=== PATIENT | female | born 1960 ===

== ENCOUNTER 2017-05-09 11:31 | Emergency (ER) | payer OTHER ==
[2017-05-09 12:07] VITALS: RESP 16; TEMP 97.8; O2SAT 98
[2017-05-09] MEDS ORDERED: Oxycodone/Acetaminophen 5/325 mg Tab PO STA (12:26)
[2017-05-09] MEDS ORDERED: Oxycodone/Acetaminophen 5/325 mg Tab ONE (12:52)
--- NOTE | 2017-05-09 13:45 | C.PDOC ---
History Of Present Illness 56 year old female presents to the ER with a complaint of right rib pain for the past 6 days after she tripped and landed on her right side. Patient reports she has pain with movement and has been taking advil with no relief. Denies head trauma or LOC. 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) Family History: States: Unknown Family Hx - Social History Hx Alcohol Use: No Hx Substance Use: No - Immunization History Hx Tetanus Toxoid Vaccination: No Hx Influenza Vaccination: No Hx Pneumococcal Vaccination: No Review Of Systems Respiratory: Negative for: Shortness of Breath, Wheezing Musculoskeletal: Positive for: Other (Right rib pain) Physical Exam - Physical Exam Appears: Non-toxic, Other (uncomfortable) Skin: Warm, Dry Head: Atraumatic, Normacephalic Eye(s): bilateral: Normal Inspection, EOMI Nose: Normal Oral Mucosa: Moist Neck: Normal ROM, Supple Chest: Symmetrical, Tenderness (Right posterior rib) Cardiovascular: Rhythm Regular Respiratory: Normal Breath Sounds, No Rales, No Rhonchi, No Wheezing Gastrointestinal/Abdominal: Soft, No Tenderness Extremity: Normal ROM Neurological/Psych: Oriented x3, Normal Speech ED Course And Treatment O2 Sat by Pulse Oximetry: 98 (Room air) Pulse Ox Interpretation: Normal - Radiology CXR: Interpreted by Me (Dr Hi and I), Viewed By Me CXR Interpretation: Yes: Fracture (3 rib). No: Pnemothorax Progress Note: Percocet administered for pain with improvement of pain. Patient will be discharge with spirometry incentive and instructions to follow up with PMD in 1-2 days or return if symptoms worsen. Disposition - Disposition Referrals: [facility] at [facility] [Outside] Disposition: HOME/ ROUTINE Disposition Time: 13:42 Condition: STABLE Additional Instructions: Follow up with your primary medical doctor or clinic in 2-5 days for further evaluation. Take medications as prescribed. Return to the emergency department at any time if symptoms persist or worsen. Prescriptions: Naproxen [Naprosyn] 1 tab PO BID PRN #20 tab PRN Reason: Pain oxyCODONE/Acetaminophen [Percocet 5/325 mg Tab] 1 tab PO QID PRN #20 tab PRN Reason: Pain Instructions: Rib Fracture (DC) Forms: Work/School/Gym Excuse - Clinical Impression Clinical Impression: Rib fracture - PA / PRIVATE WATCHMAN / Resident Statement MD/DO has reviewed & agrees with the documentation as recorded. - Scribe Statement The provider has reviewed the documentation as recorded by the Scribmadison [place] All medical record entries made by the Jorgeibmadison were at my direction and personally dictated by me. I have reviewed the chart and agree that the record accurately reflects my personal performance of the history, physical exam, medical decision making, and the department course for this patient. I have also personally directed, reviewed, and agree with the discharge instructions and disposition.
[2017-05-09 14:07] VITALS: BP 137/85; PULSE 81
--- NOTE | 2017-05-09 14:39 | RAD ---
PROCEDURE: Radiographs of the Chest and Right Ribs. HISTORY: trauma COMPARISON: None available. TECHNIQUE: Frontal radiograph of the chest and multiple oblique radiographs of the right ribs were obtained. FINDINGS: RIGHT RIBS: There are posterior right 5th 6th 7th and 8th rib fractures. No marked displacement seen. Minimal cortical offset of the posterior 6th rib noted noted. Chronicity of these fractures is not known. . LUNGS: Clear. PLEURA: No pneumothorax appreciated. Or asymmetric pleural fluid. CARDIOVASCULAR: Mild cardiomegaly. No pulmonary vascular congestion. OTHER FINDINGS: Scoliosis. Thoraco lumbar spondylosis. Bilateral shoulder arthrosis. IMPRESSION: Right 5th 6th 7th and 8th rib posterior fractures. Precise chronicity unknown. No marked displacement seen. Minimal cortical offset of the posterior right 6th rib noted. No pneumothorax appreciated. . Lung inspiration is shallow bilaterally. The appearance of each costophrenic angle is similar. No asymmetric moderate or large pleural effusion noted.
== END 2017-05-09 14:06 | disposition home or self-care (01) ==
LOC: C.ER 11:31
DX: S22.41XA Multiple fractures of ribs, right side, initial encounter for closed fracture (principal); W01.0XXA Fall on same level from slipping, tripping and stumbling without subsequent striking against object, initial encounter; Y92.89 Other specified places as the place of occurrence of the external cause

== ENCOUNTER 2017-06-18 11:26 | Emergency (ER) | payer OTHER ==
[2017-06-18 11:48] VITALS: PULSE 79; RESP 20; TEMP 97.6; O2SAT 98
--- NOTE | 2017-06-18 12:44 | C.PDOC ---
History Of Present Illness 56-year-old female presents to the emergency department with complaints of elevated blood pressure for the past 4 days. She admits to occasional mild headaches, light headedness and nausea in that amount of time. Patient has a Hx of hypertension, was taking Metoprolol once daily but stopped last year because she lost her insurance. Patient states she has some left over pills that she has been taking for the past few days. Patient has scheduled medical clinic appointment tomorrow, but came to ER due to concern about her symptoms. She denies chest pain, SOB, palpitations, visual changes, extremity weakness, sensory changes, facial droop, slurred speech. 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 Constitutional: Negative for: Fever, Chills Cardiovascular: Positive for: Light Headedness. Negative for: Chest Pain, Palpitations Respiratory: Negative for: Shortness of Breath Gastrointestinal: Positive for: Nausea. Negative for: Vomiting, Abdominal Pain , Diarrhea Musculoskeletal: Negative for: Back Pain Neurological: Positive for: Headache. Negative for: Weakness, Numbness, Confusion, Seizures, Altered Mental Status, Dizziness Physical Exam - Physical Exam Appears: Well, Non-toxic, No Acute Distress Eye(s): bilateral: Normal Inspection, PERRL, EOMI Oral Mucosa: Moist Neck: Supple Cardiovascular: Rhythm Regular Respiratory: Normal Breath Sounds, No Rales, No Rhonchi, No Wheezing Gastrointestinal/Abdominal: Normal Exam, Bowel Sounds, Soft, No Tenderness Neurological/Psych: Oriented x3, Normal Speech, Normal Cognition, Normal Cranial Nerves, No Cerebellar Signs, Normal Motor, Normal Sensation Gait: Steady ED Course And Treatment O2 Sat by Pulse Oximetry: 98 (RA) Pulse Ox Interpretation: Normal Progress Note: Patient given PO Norvasc, and accucheck ordered and reviewed. Reevaluation Time: 13:00 Reassessment Condition: Improved (Patient reassessed, is resting comfortably and states she feels better. BP has improved, currently 155/90, and accucheck is 120. Patient is well appearing and comfortable being discharged home, has scheduled clinic appt tomorrow. Patient given Rx for Norvasc, and instructed to return to ED if symptoms worsen/return.) Disposition Counseled Patient/Family Regarding: Studies Performed, Diagnosis, Need For Followup, Rx Given - Disposition Referrals: [facility] [Outside] Disposition: HOME/ ROUTINE Disposition Time: 12:45 Condition: STABLE Additional Instructions: FOLLOW UP IN THE MEDICAL CLINIC TOMORROW SCHEDULED USE MEDICATION DAILY RETURN TO ER IF YOU HAVE ANY CONCERNING SYMPTOMS Prescriptions: amLODIPine [Norvasc] 5 mg PO DAILY #30 tab Instructions: High Blood Pressure (DC) Forms: [employer] (Sami) Print Language: MALAYSIAN - POA Present On Arrival: None - Clinical Impression Clinical Impression: Hypertension - Scribe Statement The provider has reviewed the documentation as recorded by the Scribe (Vinh Abreu) All medical record entries made by the Scribe were at my direction and personally dictated by me. I have reviewed the chart and agree that the record accurately reflects my personal performance of the history, physical exam, medical decision making, and the department course for this patient. I have also personally directed, reviewed, and agree with the discharge instructions and disposition.
[2017-06-18 13:01] VITALS: BP 157/100
== END 2017-06-18 13:02 | disposition home or self-care (01) ==
LOC: C.ER 11:26
DX: I10 Essential (primary) hypertension (principal)

== ENCOUNTER 2018-02-11 08:50 | Emergency (ER) | payer OTHER, SELFPAY ==
[2018-02-11 08:50] VITALS: BMI 28.0
--- NOTE | 2018-02-11 09:29 | C.PDOC ---
History Of Present Illness 57 year old female presents to ED for evaluation of left ankle pain and swelling s/p injury last night. Pt states she missed a step on the stairs, twisting her left ankle. Notes she is unable to bear weight. She also reports pain and swelling to left lower leg, below the knee. Notes she took 600mg of Advil at 8:00 this morning. Otherwise, denies head injury, extremity weakness, numbness, skin changes, fever, or any other symptoms at this time. Time Seen by Provider: 02/11/18 09:26 Chief Complaint (Nursing): Lower Extremity Problem/Injury History Per: Patient History/Exam Limitations: no limitations Onset/Duration Of Symptoms: Days (1) Current Symptoms Are (Timing): Still Present Recent travel outside of the [place]: No Additional History Per: Patient - Ankle/Foot Description Of Injury: Fell, Twisted Currently Unable To: Bear Weight Alleviating Factor(s): OTC Pain Medication Past Medical History Reviewed: Historical Data, Nursing Documentation, Vital Signs Vital Signs: Last Vital Signs Temp 98.5 F 02/11/18 08:52 Pulse 89 02/11/18 08:52 Resp 16 02/11/18 08:52 BP 136/90 02/11/18 08:52 Pulse Ox 97 02/11/18 08:52 - Medical History PMH: HTN - [facility] 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 Constitutional: Negative for: Fever, Chills Musculoskeletal: Positive for: Foot Pain (left) Neurological: Negative for: Weakness, Numbness Physical Exam - Physical Exam Appears: Non-toxic, No Acute Distress Skin: Normal Color, Warm, Dry Head: Atraumatic, Normacephalic Oral Mucosa: Moist Extremity: Normal ROM (FROM of left knee joint), Tenderness (left medial malleolus > lateral malleolus), No Calf Tenderness, Capillary Refill (less than 2 seconds), No Deformity, Swelling (left ankle swelling; no knee, or proxmial tib fib region swelling), No Other (no tenderness to proximal tib fib area) Extremity: Bilateral: Normal Color And Temperature Pulses: Left Dorsalis Pedis: Normal, Right Dorsalis Pedis: Normal Neurological/Psych: Oriented x3, Normal Speech, Normal Motor, Normal Sensation ED Course And Treatment O2 Sat by Pulse Oximetry: 97 (RA) Pulse Ox Interpretation: Normal - CT Scan/US Left ankle CT Other Rad Studies (CT/US): Read By Radiologist, Radiology Report Reviewed CT/US Interpretation: Accession No. : [id number]. Patient Name / ID : NAVID [id number] / [id number]. Exam Date : 02/11/2018 10:19:59 ( Approved ). Study Comment : Sex / Age : F / 57Y. Creator : Onur Tariq MD. Dictator : Onur Tariq MD. Senior Php Developer : Hearing Screen Coordinator : Onur Tariq MD. Approver2 : Report Date : 02/11/2018 11:07:42. My Comment : . Date of service: 02/11/2018. PROCEDURE: CT left ankle. HISTORY: ANKLE FRACTURE. COMPARISON: Not available. TECHNIQUE: 2.5 mm contiguous axial sections were acquired through the left ankle. Sagittal and coronal images were reformatted from the axial scan. No intravenous contrast material was administered. Total exam DLP: 399.64 mGy-cm. This CT exam was performed using 1 or more of the following dose reduction techniques: Automated exposure control, adjustment of the mA and/or kV according to patient size, and/or use of iterative reconstruction technique. FINDINGS: There is an oblique minimally displaced fracture of the distal fibula above the level of the plafond and. There is probable very small avulsion fracture at the distal tip of the lateral malleolus. There is a minimally displaced comminuted fracture of the posterior malleolus. There is a minimally displaced comminuted fracture of the tip of the medial malleolus.. There is no other fracture identified. The talar dome is smooth. The ankle mortise is not widened. There is no tarsal fracture appreciated. The metatarsals appear intact. There is soft tissue swelling seen about both the medial and lateral aspect of the ankle. IMPRESSION: Trimalleolar fracture. No wart is widening. Talar dome intact. Progress - Re-Evaluation Re-evaluation Note: 02/11/18 10:02 D/W PODIATRY RESIDENT WILL EVAL IN ER. REQUESTS CT 02/11/18 12:03 SPLINT APPLIED BY PODIATRY RESIDENT. PT TO FU CLINIC 02/12 - Data Reviewed Data Reviewed: Diagnostic imaging Medical Decision Making Medical Decision Making: Plan: * Left Tib/fib, ankle, foot Xray * Left lower extremity CT scan * Percocet Disposition Counseled Patient/Family Regarding: Studies Performed, Diagnosis, Need For Followup, Rx Given - Disposition Referrals: [facility] [Outside] [facility] [Outside] Disposition: HOME/ ROUTINE Disposition Time: 12:03 Condition: IMPROVED Prescriptions: Ibuprofen [Motrin] 600 mg PO Q6 #30 tab oxyCODONE/Acetaminophen [Percocet 5/325 mg Tab] 1 ea PO Q6 PRN #10 tab PRN Reason: Pain, Moderate (4-7) Instructions: Ankle Fracture (DC), How to Use Crutches Forms: [employer] (Yemeni) - Clinical Impression Clinical Impression: Ankle fracture - Scribe Statement The provider has reviewed the documentation as recorded by the Scribe KP All medical record entries made by the Scribe were at my direction and personally dictated by me. I have reviewed the chart and agree that the record accurately reflects my personal performance of the history, physical exam, [facility] decision making, and the department course for this patient. I have also personally directed, reviewed, and agree with the discharge instructions and disposition.
[2018-02-11] MEDS ORDERED: Oxycodone/Acetaminophen 5/325 mg Tab PO STA (09:30)
[2018-02-11] MEDS ORDERED: Oxycodone/Acetaminophen 5/325 mg Tab ONE (09:45)
--- NOTE | 2018-02-11 11:11 | CT ---
Date of service: 02/11/2018 PROCEDURE: CT left ankle HISTORY: ANKLE FRACTURE COMPARISON: Not available TECHNIQUE: 2.5 mm contiguous axial sections were acquired through the left ankle. Sagittal and coronal images were reformatted from the axial scan. No intravenous contrast material was administered. Total exam DLP: 399.64 mGy-cm This CT exam was performed using 1 or more of the following dose reduction techniques: Automated exposure control, adjustment of the mA and/or kV according to patient size, and/or use of iterative reconstruction technique. FINDINGS: There is an oblique minimally displaced fracture of the distal fibula above the level of the plafond and. There is probable very small avulsion fracture at the distal tip of the lateral malleolus. There is a minimally displaced comminuted fracture of the posterior malleolus. There is a minimally displaced comminuted fracture of the tip of the medial malleolus.. There is no other fracture identified. The talar dome is smooth. The ankle mortise is not widened. There is no tarsal fracture appreciated. The metatarsals appear intact. There is soft tissue swelling seen about both the medial and lateral aspect of the ankle. IMPRESSION: Trimalleolar fracture. No wart is widening. Talar dome intact.
--- NOTE | 2018-02-11 12:15 | CP.PCM.CON ---
History of Present Illness - History of Present Illness History of Present Illness: Podiatry consult notes for attending Dr. Timmons: 57 y/o F patient with no PMH seen and evaluated in the ED for Pain and swelling in her left ankle. Patient states that yesterday she got tripped from the stairs. She states that her left ankle twisted inward. She states that she felt the pain immediatly and her left ankle got swollen. She states that the pain is 10/10 when she tries to step over her left foot and decreases to 4/10 when she is off weight bearing. She states that the swelling size of her left ankle is the same since yesterday. Patient denies any head trauma or loss of consciousness. She denies any tingling, numbness or burning sensation in her feet. Patient denies any recent F/N/V/C or SOB. She denies any other pedal complaint at this time. PMH: none. PSH: R leg surgery, Allergies: NKDA. Social Hx: smoker 4 cigarettes/day for more than 15 years, EtOH use socially. Denies illicit drug use. Review of Systems - Review of Systems Review of Systems: As per HPI - Constitutional Constitutional: As Per HPI Past Patient History - Past Social History Smoking Status: Light Smoker < 10 Cigarettes Daily - CARDIAC Hx Hypertension: Yes - MUSCULOSKELETAL/RHEUMATOLOGICAL Hx Musculoskeletal Disorders: Yes Other/Comment: Right rib fractures - PSYCHIATRIC Hx Substance Use: No - SURGICAL HISTORY Hx Surgeries: Yes Hx Section: Yes Hx Musculoskeletal Surgery: Yes (right foot sx) - ANESTHESIA Hx Anesthesia: Yes Hx Anesthesia Reactions: No Meds Allergies/Adverse Reactions: Allergies Allergy/AdvReac Type Severity Reaction Status Date / Time No Known Allergies Allergy Verified 02/11/18 08:58 Physical Exam - Constitutional Appears: Well, Non-toxic, No Acute Distress - Head Exam Head Exam: ATRAUMATIC, NORMOCEPHALIC - Extremities Exam Additional comments: LLE focused exam: Vasc: DP/PT 2/4, Cap refill < sec to all digits, Temp gradient warm to cool. Ecchymosis noted at the posteromedial aspect of her left ankle at Moderate perimalleolar edema noted to the left ankle. Neuro: Gross and protective sensations are intact. Derm: Ecchymosis noted at the posteromedial aspect of her left ankle at Moderat e perimalleolar edema noted to the left ankle. No clinical signs of active infection. MSK: Moderate pain on palpating the the L perimalleolar area. Pain with inversion of the left foot. Muscle power intact to all groups including the toes' flexors and extensors 5/5. - Neurological Exam Neurological exam: Alert, Oriented x3 - Psychiatric Exam Psychiatric exam: Normal Affect, Normal Mood Results - Vital Signs Recent Vital Signs: Last Vital Signs Temp 98.5 F 02/11/18 08:52 Pulse 89 02/11/18 08:52 Resp 16 02/11/18 08:52 BP 136/90 02/11/18 08:52 Pulse Ox 97 02/11/18 11:36 Assessment & Plan - Assessment and Plan (Free Text) Assessment: 57 y/o F patient seen and evaluated in the ED for Trimalleolar fracture left ankle Plan: - Patient seen and Evaluated in the ED. - Plan discussed in details with attending Dr. Timmons - Charts and vitals reviewed; Afebrile. - X-ray Left ankle;trimalleoloar fracture. - X-ray Left Foot;trimalleoloar fracture. - Tib-fibula X-ray: Ankle fracture. - CT left ankle: trimalleoloar fracture. - Posterior splint applied to the patient left LE. - Patient instructed to stay NWB to her left LE and to ambulate using crutches. - Dispensed pair of crutches. - Patient educated RICE protocol. - Patient instructed to keep the splint clean, Dry and Intact. - Rx; pain medication Prescribed by the ED doctor to be used in case of sever pain. - patient expressed verbal understanding. - Patient will follow up at Dr. Timmons at the podiatry clinic at [facility] tomorrow. - Thank you for consulting podiatry service. - Date & Time Date: 02/11/18 Time: 12:02
--- NOTE | 2018-02-11 12:50 | RAD ---
Date of service: 02/11/2018 PROCEDURE: Left Foot Radiographs. HISTORY: TRAUMA COMPARISON: None. FINDINGS: BONES: Normal. No fracture. JOINTS: Normal. SOFT TISSUES: Normal. OTHER FINDINGS: None. IMPRESSION: Normal left foot radiographs.
--- NOTE | 2018-02-11 12:52 | RAD ---
Date of service: 02/11/2018 PROCEDURE: Radiographs of the left tibia and fibula. HISTORY: TRAUMA COMPARISON: None available. TECHNIQUE: Frontal and lateral views obtained. FINDINGS: BONES: Oblique minimally displaced fracture distal fibula. Mildly displaced medial malleolar fracture. No other fracture definitely identified. JOINT SPACES: Unremarkable. OTHER FINDINGS: None. IMPRESSION: Distal fibular fracture. Medial malleolar fracture.
--- NOTE | 2018-02-11 12:53 | RAD ---
Date of service: 02/11/2018 PROCEDURE: Left Ankle Radiographs. HISTORY: TRAUMA COMPARISON: None available. FINDINGS: BONES: Minimally displaced posterior malleolar fracture. Mildly displaced medial malleolar fracture. Comminuted oblique distal fibular fracture above the level of the plafond. JOINTS: Normal. No osteoarthritis. Ankle mortise maintained. Talar dome intact SOFT TISSUES: Medial and lateral soft tissue swelling. OTHER FINDINGS: None. IMPRESSION: Trimalleolar fracture.
[2018-02-11 13:57] VITALS: BP 180/98; PULSE 87; RESP 20; TEMP 98.1; O2SAT 99
== END 2018-02-11 13:57 | disposition home or self-care (01) ==
LOC: C.ER 08:50
DX: S82.852A Displaced trimalleolar fracture of left lower leg, initial encounter for closed fracture (principal); W19.XXXA Unspecified fall, initial encounter; I10 Essential (primary) hypertension; F17.210 Nicotine dependence, cigarettes, uncomplicated
CPT/HCPCS: 29515; 73590; 73610; 73630; 73700; 97116; 97162; 99283; G8978; G8979; G8980

== ENCOUNTER 2018-02-26 06:14 | Day surgery (SDC) | payer SELFPAY ==
[2018-02-26] MEDS ORDERED: Bupivacaine HCl 0.5% PF (30 ml) Inj ONE (07:30)
[2018-02-26] MEDS ORDERED: ceFAZolin IV 1 gm in Dextrose 1 GM/50 ML BAG IVPB ONE ×2 (07:30→08:37)
[2018-02-26] MEDS ORDERED: Bacitracin Ointment 30 GM TUBE ONE (07:30)
[2018-02-26] MEDS ORDERED: Midazolam 2 MG/2 ML VIAL ONE ×2 (08:09→11:16)
[2018-02-26] MEDS ORDERED: Propofol 10 mg/ml Inj (20 ML) ONE (08:09)
[2018-02-26] MEDS ORDERED: Lidocaine Hydrochloride 5 ML INJ ONE (08:16)
[2018-02-26] MEDS ORDERED: Metoprolol 1 mg/ml Inj ONE (09:09)
[2018-02-26] MEDS ORDERED: Morphine 4 MG/ML VIAL ONE ×2 (10:48→11:13)
[2018-02-26] MEDS ORDERED: Oxycodone/Acetaminophen 5/325 mg Tab PO PRN ×2 (11:26)
--- NOTE | 2018-02-26 11:27 | PCM.SURG1 ---
Surgeon's Initial Post Op Note - Surgeon's Notes Surgeon: RAEANN LiM Blood Donor Unit Assistant: Dr. Manuel Yeager, RAEANNM PGY-3; RAEANN GlassM PGY-2; Type of Anesthesia: General Endo Anesthesia Administered By: Dr. Teresa MD Pre-Operative Diagnosis: closed displaced trimalleolar fracture of left ankle Operative Findings: see operative note. pre-operative and post-operative neurvascular status intact to left foot and ankle Post-Operative Diagnosis: same Operation Performed: ORIF distal fibula fracture with plates and screws, excision of medial malleolar avulsion fracture with repair of deltoid ligament using fiber tape, repair of syndesmotic ligament with tightrope all left ankle Specimen/Specimens Removed: none Estimated Blood Loss: EBL {In ML}: 15 Blood Products Given: N/A Drains Used: No Drains Post-Op Condition: Good Date of Surgery/Procedure: 02/26/18 Time of Surgery/Procedure: 08:30
[2018-02-26] MEDS: HYDROmorphone 0.5 mg/0.5 ml ISec IVP PRN ×2 (12:17→12:29)
--- NOTE | 2018-02-26 13:16 | PCM.ANESB2 ---
Popliteal Nerve Block - Popliteal Nerve Block Date of Procedure: 02/26/18 Anesthesiologist: Manisha Pagan Pre-Procedure Diagnosis: left ankle fracture Post-Procedure Diagnosis: Left ankle ORIF Procedure Performed: Popliteal Nerve Block Left - Procedure Popliteal Nerve Block: This procedure was explained to the patient that it is for post-operative pain management. Consent was obtained after a thorough discussion with the patient regarding the benefits and possible complications of local anesthetic block of the sciatic nerve at the popliteal level. The patient was in recovery room and standard monitors are applied. Time-out was held with the circulating nurse to confirm the correct surgery and the appropriate block. After applying oxygen by nasal cannula and administering IV Sedation, patient's operative leg was gently raised and supported and the groove in between the biceps femoris and vastus lateralis muscles was carefully palpated. The skin approximately 8cm above the popliteal crease was then marked. The ultrasound transducer was then applied to the posterior thigh approximately 8cm above the popliteal crease in the transverse plane and the sciatic nerve before its division was visualized lateral to the popliteal artery and in between the bicep femoris and semimembranosus/semitendinosus muscles. After identification, the lateral portion of the thigh was prepped with Betadine solution three times and Lidocaine 1% was injected subcutaneously for topical anesthesia. At this point, a # 21 gauge Stimuplex insulated 4 inch needle was inserted into pre-marked area and advanced in a perpendicular direction. The needle was inserted above the ultrasound transducer in-plane towards the sciatic nerve in a [id number] direction. Needle advancement was performed carefully under direct ultrasound visualization. Nerve stimulator was used and dorsiflexion of the left foot was elicited and fade was seen at a current of _0.4 MA. After repeated negative aspiration, __20___cc of __0.5___ % _Bupivacaine_ was injected. Under ultrasound guidance the local anesthetics were observed surrounding sciatic nerve . The needle was removed intact and sterile dressing was applied. The patient tolerated the popliteal nerve block well with stable vital signs.
[2018-02-26 14:41] VITALS: BP 164/84; PULSE 64; RESP 20; TEMP 97.4; O2SAT 98
--- NOTE | 2018-02-26 16:17 | RAD ---
Date of service: 02/26/2018 PROCEDURE: Left Ankle Radiographs. HISTORY: s/p L ankle ORIF COMPARISON: Comparison chest ankle dated 02/11/2018. FINDINGS: BONES: Status post ORIF previously noted trimalleolar fracture.. There also appears to be postoperative changes of tight rope repair as well JOINTS: Normal. No osteoarthritis. Ankle mortise maintained. Talar dome intact SOFT TISSUES: Normal. OTHER FINDINGS: None. IMPRESSION: Status post ORIF previously noted trimalleolar fracture.. There also appears to be postoperative changes of tight rope repair as well
--- NOTE | 2018-02-26 16:43 | RAD ---
Date of service: 02/26/2018 PROCEDURE: Intraoperative Fluoroscopy. HISTORY: FX. LT. ANKLE FINDINGS: Fluoroscopic assistance was provided. Fluoroscopy time = 60.5 sec. Radiation dose = 1.26 mGy. Please refer to the operative report from IMELDA Roberson.
--- NOTE | 2018-02-27 07:47 | OP ---
PROCEDURE DATE: 02/26/2018 PREOPERATIVE DIAGNOSES: 1. Displaced trimalleolar fracture of left ankle. 2. Avulsion fracture of medial malleolus, left ankle. 3. Rupture of syndesmosis ligament, left ankle. POSTOPERATIVE DIAGNOSES: 1. Displaced trimalleolar fracture of left ankle. 2. Avulsion fracture of medial malleolus, left ankle. 3. Rupture of syndesmosis ligament, left ankle. PROCEDURES PERFORMED: 1. Open reduction with internal fixation of distal fibular fracture using plate and screws. 2. Excision of avulsion fracture fragment medial malleolus with repair of deltoid ligament, left ankle. 3. Repair of syndesmosis ligament, left ankle. SURGEON: Sofi Timmons DPM. QUALITY ASSISTANT: Camila Yeager DPM, PGY-3; Eldon Brower DPM, PGY-2; Basia Robles DPM, PGY-1. CLAY MAKER: Dr. Moore. TYPE OF ANESTHESIA: General with local and popliteal block. INDICATION: The patient is a 57-year-old female with the above mentioned diagnoses. Of note, the patient presented to the [facility] Emergency [facility] approximately two weeks ago after sustaining a trip and fall to her left lower extremity and sustaining a trimalleolar fracture of the left ankle. The patient has been seen and followed on an outpatient basis in the Podiatry Clinic with Dr. Timmons. The patient required surgical intervention at this time. The patient signed the consent after careful explanation of all risks, benefits, complications, and alternatives for the surgical procedure. Of note, the patient did mention that she has removed her splint at home and has put some unprotected weight to the left lower extremity. No guarantees were given nor implied to the patient. NPO status was confirmed prior to bringing the patient into the operating room. OPERATIVE PREPARATION: The patient was brought into the operating room and placed on the operating room table in a supine position. A well-padded pneumatic thigh tourniquet was placed to the patient's left thigh after induction of IV sedation. The left foot was then hung using an alcohol prep Kerlix to an IV tower, and was then prepped in a normal fashion. The left foot and ankle were then prepped and draped in the usual sterile manner. Esmarch was utilized to exsanguinate the patient's left foot and ankle. The pneumatic ankle tourniquet was then inflated to 350 mmHg, and the procedure was begun. DESCRIPTION OF PROCEDURE: PROCEDURE #1: Open reduction with internal fixation of distal fibular fracture using plate and screws of the left ankle. Our attention was now directed to the lateral aspect of the patient's distal fibula where an approximately 10 cm linear longitudinal incision was made directly over the tracts of the lateral fibula taking care to avoid all vital neurovascular structure. All bleeders were cauterized and ligated as necessary. Next, the incision was made down directly to the level of the fibula. Next, a newberry elevator was utilized to free the periosteal tissue medially and laterally thus exposing the fracture fragment into the operative site. At this time,a curette was utilized to excise any fracture fragments or hematoma or fibrous tissues from the fracture site itself. The surgical site was then flushed with copious amount of sterile normal saline solution. Next, gentle distraction was placed to the distal aspect of the patient's foot, and two bone reduction forceps were utilized to reduce the fracture fragment into a more anatomic position. Intraoperative fluoroscopy was utilized to check reduction at this time which appeared to be excellent with excellent gnosticist of the fibular length and gnosticist of the lateral ankle mortise at this time. Next, a 2.7 cortical screw was inserted in its place perpendicular to the fracture fragment. Anterior to the fracture fragment, standard AO principles and techniques were used with excellent compression achieved at the fracture site. Next, a Synthes 7 hole one-third tubular plate was chosen and then was placed over the fracture site on the lateral fibula using intraoperative fluoroscopy to check position of the plate which appeared to be excellent at this time. A 0.062 K-wire was then driven to the most distal and proximal aspect of the plate, and next, using standard AO principles and techniques with combination of 4 screws (3.5 non-locking and locking Synthes) were placed to the foremost proximal hole of the plate. Additionally, a 4.0 cancellous screw was inserted in the most distal hole and additionally, a 3.5 locking screw was inserted in the second most distal hole of the plate using standard AO principles and techniques. Correction of the deformity was assessed at this time with excellent reduction maintained of the fibular fracture. The surgical site was then flushed with copious amount of sterile normal saline solution. PROCEDURE #2: Excision of bulging fracture from medial malleolus with repair of deltoid ligament left ankle. Attention was directed to the medial malleolus of the patient's left ankle when approximately 4 cm curvilinear incision was made directly over the medial malleolus. Care was taken to avoid all vital neurovascular structures at this time. All bleeders were cauterized as necessary. A fresh #15 was utilized to make a linear incision to the capsule and periosteum, and a freer elevator was utilized to reflect the periosteal tissue medially and laterally thus exposing the fracture fragment in to view. An Allis forceps was utilized to clamp down onto the fracture fragment in question and a #15 blade was utilized to excise just a small fracture fragment passing off the field. The surgical site was then flushed with copious amounts of sterile normal saline solution to remove any further debris. Next, the superficial deltoid fibers were reflected medially and laterally off the medial malleolus and an Arthrex FiberTak implant was chosen, contained within the Arthrex kit of 1.35 K-wire was utilized to drill holes into the medial malleolus. Next, the FiberTak was then inserted and placed into the drill hole and a mallet was used to tap and keep the FiberTak in place into the bone. At this time, this FiberTak was then pulled back from the medial malleolus in order to allow the FiberTak implant to seat into the drill hole within with the medial malleolus. Next, a needle commercial trailer truck driver was utilized to repair fibers of the superficial deltoid ligament in an over and over fashion with excellent correction achieved at this time. The surgical site was then flushed with copious amounts of normal sterile solution. The periosteal tissue was reapproximated using 2-0 Vicryl. The subcutaneous tissue was reapproximated using 3-0 Vicryl, subcuticular tissue was reapproximated using 4-0 Vicryl, and skin was reapproximated using 4-0 Monocryl suture. PROCEDURE #3: Repair of syndesmosis ligament of left ankle. Our attention at this time was redirected towards the lateral incision at the level of the distal fibula. Next, a K-wire was inserted across the third most distal hole of the plate and a bone resector was passed to the lateral aspect of the fibula to the plate to the entirety of the fibula and then to the medial and lateral cortices of the tibia, and then the guidewire exited through the medial aspect at the patient's medial malleolus. Proper positioning of the guidewire was verified using intraoperative fluoroscopy. Next, the cannulated drill bit from the Arthrex TightRope system was placed over the guidewire, and the medial and lateral cortices of the fibula were drilled and the medial and lateral cortices of the tibia were also drilled. The drill bit and guidewire were then removed from surgical field. Next, a needle from the TightRope system was passed to the lateral and medial cortices of the fibula and to the lateral and medial cortices of the tibia and exiting out the medial aspect of the patient's left ankle. The needle was then cut free from the suture and the medial and lateral buttons of the Arthrex TightRope system was then manipulated, utilizing the tissues to be flushed of the medial aspect of the tibial cortex and the lateral aspect of the fibula. Proper position of the buttons was verified utilizing intraoperative fluoroscopy, and external rotation was performed with maintenance of the tib-fib overlap in the ankle mortise. The surgical site was again flushed with copious amount of sterile normal saline solution. Periosteal tissue was reapproximated using 2-0 Vicryl, subcutaneous tissue reapproximated using 3-0 Vicryl, subcuticular tissue reapproximated using 4-0 Vicryl, and skin edges reapproximated using 4-0 Monocryl. Postoperative injection consisted of 0.5% Marcaine plain was introduced in local block fashion to the medial aspect of the patient's first ankle joint in order to block the saphenous nerve. Postoperative bandages include Steri-Strip, bacitracin, Adaptic, 4 x 4 gauze, Ashely, Kerlix, and a well-padded below knee AO splint was applied to the patient's ankle at 90 degrees in neutral position. POSTOPERATIVE CONDITION: The patient tolerated the procedure and anesthesia well with no apparent complications or complaints. The patient was escorted from the OR to the recovery room with vital signs stable and neurovascular structures intact to the patient's left lower extremity. The patient will be strictly nonweightbearing to the left lower extremity with crutches. The patient is told to monitor for any signs of infection. The patient will follow up in the clinic with Dr. Timmons on an outpatient basis within one week. Camila Yeager DPM Sofi Timmons DPM [id number]
== END 2018-02-26 17:34 | disposition home or self-care (01) ==
LOC: C.SDS 06:14
PROVIDERS: ATTEND Podiatrist Foot & Ankle Surgery
DX: S82.852A Displaced trimalleolar fracture of left lower leg, initial encounter for closed fracture (principal); W01.0XXA Fall on same level from slipping, tripping and stumbling without subsequent striking against object, initial encounter
CPT/HCPCS: 27822; 73610; C1713; C1769; J0690; J1170; J1885; J2250; J2270; J2405; J2704; J2765; J3010